=== PATIENT | female | born 1990 | race Caucasian/White ===

== ENCOUNTER 2018-07-29 12:43 | Inpatient (IN) | payer OTHER, SELFPAY ==
[2018-07-29] MEDS ORDERED: NA CIT/CITRIC AC 30 ML ORAL UDC ONE (13:45)
[2018-07-29] MEDS ORDERED: METOCLOPRAMIDE 10 MG/2mL INJ ONE (13:45)
[2018-07-29] MEDS ORDERED: FAMOTIDINE 20 MG/2 ML VIAL IV ONE (13:46)
[2018-07-29] MEDS ORDERED: METHYLERGONOVINE 0.2MG/ML AMP IM PRN ×2 (13:51→15:25)
[2018-07-29] MEDS ORDERED: CARBOPROST TROME 250 MCG/ML IM PRN (13:51)
[2018-07-29] MEDS ORDERED: Ringers Lactate 1,000 ML IV PRN (13:51)
[2018-07-29] MEDS ORDERED: NA CIT/CITRIC AC 30 ML ORAL UDC PO ONE (13:55)
[2018-07-29] MEDS ORDERED: BUPIVACAINE 0.75% (PF) 2 ML SP ONE (13:56)
[2018-07-29] MEDS ORDERED: LIDOCAINE 1.5% W/EPI AMP 5 ML ONE (13:56)
[2018-07-29] MEDS ORDERED: MORPHINE SULFATE/PF 1 MG/ML (10 ML AMP) ONE (13:57)
[2018-07-29] MEDS ORDERED: CEFAZOLIN 2 GM in NA CHLORIDE 0.9% 100 ML IVPB SCH (14:00)
[2018-07-29] MEDS ORDERED: Ringers Lactate 1,000 ML IV SCH (14:00)
[2018-07-29] MEDS ORDERED: METOCLOPRAMIDE 10 MG/2mL INJ IV SCH (14:00)
[2018-07-29] MEDS ORDERED: OXYTOCIN 10 UNIT/ML ML IV ONE (14:02)
[2018-07-29] MEDS ORDERED: ONDANSETRON HCL 40 MG/20 ML VIAL ONE (14:14)
[2018-07-29] MEDS ORDERED: CEFAZOLIN/SWI 2gm 2 GM/20 ML SYR IV SCH (14:15)
[2018-07-29] MEDS ORDERED: Phenylephrine HCl 10 MG/ML 1 ML VIAL ONE (14:15)
[2018-07-29 14:20] LABS: RPR Titer ND
[2018-07-29 14:28] LABS: Absolute Lymphocytes (CBC) 1.3 K/uL (0.7-4.9); Absolute Monocytes 0.4 K/uL (0.1-1.3); Absolute Neutrophil 9.1 K/uL (1.8-8.0); Basophils % 0.3 % (0-1.3); Eosinophils % 0.4 % (0-4.4); Hematocrit 32.8 % (36.0-45.0); Lymphocytes % 11.7 % (15.3-44.8); MCV 83.2 fL (80-100); MPV 10.2 fL (7.6-11.3); RBC Red Blood Cell Count 3.94 M/uL (3.86-4.86)
[2018-07-29] MEDS ORDERED: GLYCOPYRROLATE 0.2 MG/ML SYR ONE ×2 (14:43)
[2018-07-29 14:50] LABS: Glucose Level 128 mg/dL (74-106)
[2018-07-29] MEDS ORDERED: Oxycodone HCl/Acetaminophen 1 TAB TAB PO PRN (15:25)
[2018-07-29] MEDS ORDERED: METHYLERGONOVINE 0.2 MG TAB PO PRN (15:25)
[2018-07-29] MEDS ORDERED: KETOROLAC 30 MG/ML INJ IV PRN (15:25)
[2018-07-29] MEDS ORDERED: ONDANSETRON 4 MG (ODT) TAB PO PRN (15:25)
--- NOTE | 2018-07-29 15:29 | P.BOP ---
Preoperative diagnosis: 40+ week , prior c-sectionX2 Postoperative diagnosis: Same, delivery viable male Primary procedure: Trade Union Official: Colton Dey Estimated blood loss: Less than 800ml Specimen: placenta Anesthesia: Spinal Complications: None Drain(s): Urinary catheter Transferred to: Other (274) Condition: Good
[2018-07-29] MEDS ORDERED: OXYTOCIN/LR 20 UNIT/1,000 ML BAG IV SCH (16:00)
[2018-07-29] MEDS ORDERED: ONDANSETRON 4 MG/2 ML VIAL IV PRN (16:15)
[2018-07-29 16:43] VITALS: BMI 32.9
[2018-07-29 17:32] LABS: Barbiturates NEGATIVE (NEGATIVE); Benzodiazepines NEGATIVE (NEGATIVE); Cocaine NEGATIVE (NEGATIVE); METHAMPHETAM NEGATIVE (NEGATIVE); Methadone NEGATIVE (NEGATIVE); Opiates POSITIVE (NEGATIVE); Phencyclidine NEGATIVE (NEGATIVE); THC Cannibis NEGATIVE (NEGATIVE)
[2018-07-29] MEDS ORDERED: PROMETHAZINE 25 MG/ML VIAL IV ONE (18:10)
--- NOTE | 2018-07-29 18:30 | PREOPHP ---
Date of Admission: 07/29/2018 History Of Present Illness: Ms. Castellanos is a 28-year-old, questionable gestational age and questionable care at 40+ weeks gestation, presents 4 to 5 cm dilated. She has had 2 prior sections, was seen here initially, moved to the [facility], saw physician there, and then moved back to this area without an attempt to seek further care. She presents with contractions and increased vaginal discharge. Past Medical History: Includes 2 prior sections; first one done at 41 weeks gestation, unknown reason, second one done for preeclampsia at 35 weeks gestation. She has no other significant hospitalizations, accidents, illnesses , injuries. Social History: She does smoke a half pack of cigarettes per day. Allergies: HAS NO KNOWN ALLERGIES. Family History: Noncontributory. Review of Systems: She reports no recent cough, cold, fever, or chills. No recent nausea, vomiting. She denies any breast lumps. She denies any bowel or urine difficulties. Infant has been active. HEENT-Alert, no thyromegaly or lymphadenopathy Lungs-Clear Heart-Regular rate and rythym Abdomen-6+ lb infant EFW, non-tender Pelvic-as above Extremities-No edema Impression: 40+ week , prior section x2, unknown closure type , active labor. Plan: We will proceed with repeat section. We will get drop in lab work. CADY/RYANN Voice ID: [id number] MTDClara
[2018-07-30 05:53] LABS: Absolute Lymphocytes (CBC) 0.8 K/uL (0.7-4.9); Absolute Monocytes 0.8 K/uL (0.1-1.3); Absolute Neutrophil 15.1 K/uL (1.8-8.0); Basophils % 0.1 % (0-1.3); Hematocrit 28.5 % (36.0-45.0); Lymphocytes % 4.8 % (15.3-44.8); MPV 10.1 fL (7.6-11.3); Monocytes % 4.7 % (3.3-12.3); RBC Red Blood Cell Count 3.44 M/uL (3.86-4.86)
--- NOTE | 2018-07-30 08:07 | P.PN ---
Date of Service: 07/30/18 No complaints. Discussed planned care. Discussed + urine drug screen. Metal Can Inspector consult requested on pt. with + drug screen and intermittent ob care despite two prior c-sections.
[2018-07-30] MEDS ORDERED: FAMOTIDINE 20 MG/2 ML VIAL IV SCH (09:00)
--- NOTE | 2018-07-30 19:24 | OP ---
Surgeon: Kyle Chacko MD Pit Worker Power Shovel: Dr. Dey. Anesthesiologist: Dr. Toni Sung. Preoperative Diagnosis: A 40-week , active labor, prior x2. Procedures: Spinal blocking anesthesia, repeat section, delivery of a viable male infant. Postoperative Diagnosis: A 40-week , active labor, prior x2. Description Of Procedure: After a satisfactory level of spinal block anesthesia and patient had rece ived 2 g of Ancef for antibiotic prophylaxis, her abdomen was prepped and draped in usual fashion for abdominal surgery. She had a Rainey catheter in place. A Pfannenstiel skin incision was made corres ponding to her prior incision, carried down to the fascia, fascia incised with a combination of sharp and blunt dissection. This was from the underlying rectus muscles. These were divided in the midline. The peritoneum entered, bladder was released. A low-transverse uterine incision was m clive. A 6 pound 10 ounce male infant, 9 and 9 was delivered. Cord was clamped, cut, and the in herman placed in a warmer. Cord blood was obtained and the placenta was manually removed. The uterus was then exteriorized. Cervix was explored with a ring clamp from above to ensure no membranes were interfering with expulsion of lochia and a ring clamp was passed from the operative field. Uterine i ncision was closed in 2 layers of a running nonlocking suture of 0 Vicryl. Good hemostasis was noted . The uterus was returned to the peritoneal cavity which was cleaned of amniotic fluid, debris, and blood clot. The rectus abdominis muscles were approximated in midline with simple sutures of 0 Vicry l. The fascia was closed with running suture of #1 Vicryl from either margin to the middle. The ski n closed with subcutaneous sutures of 3-0 Vicryl, subdermal suture of 3-0 Vicryl, and subcuticular doran ture of 4-0 Monocryl. Estimated total blood loss was less than 800 cc. The patient tolerated all pr ocedures well, was taken to the recovery room in satisfactory condition. CADY/RYANN Voice ID: [id number] Report ID: [id number]
[2018-07-30] MEDS: IBUPROFEN 200 MG TAB PO PRN (20:12)
[2018-07-30] MEDS: Oxycodone HCl/Acetaminophen 1 TAB TAB PO PRN (23:18)
[2018-07-31 03:36] LABS: RPR (Rapid Plasma Reagin) NON-REACT (NON-REACT)
[2018-07-31] MEDS: IBUPROFEN 200 MG TAB PO PRN (04:45)
[2018-07-31] MEDS ORDERED: BISACODYL 10 MG RECTAL SUPP PR ONE (08:09)
[2018-07-31] MEDS: Oxycodone HCl/Acetaminophen 1 TAB TAB PO PRN (12:00)
[2018-07-31 12:19] VITALS: BP 109/51; TEMP 97.5
--- NOTE | 2018-08-01 02:06 | DS ---
Date of Discharge: 07/31/2018 History Of Present Illness/hospital Course: Ms. Castellanos is a 28-year-old female, 5, para 2-0-2-2, who presents to Labor and Delivery in active labor. Because of 2 prior sec tions, she underwent repeat section with spinal block anesthesia, delivered a 6-pound 10-oun ce male infant, Apgars 9 and 9. She was dismissed on the second postoperative day, ambulatory, on a select diet, with routine clfk-O-cualfzj activity restrictions, to be seen back in my office in [address] [place] [address] for incision check. Lab work included an admission hemoglobin and hematocrit of 11.0 and 32.8, dis missal 9.6 and 28.5. She had a glucose level of 128 after IV was started. A positive opiate screen, nonreactive RPR, hepatitis B pending, HIV pending, and she is rubella immune. She is O-positive blo od type. She was dismissed with prescription for Tylenol No. 3, #15, for pain relief. To start taki ng her vitamin, with usual qywp-R-hbruvfn activity restrictions. CADY/RYANN Voice ID: [id number] Report ID: [id number]
[2018-08-01 20:07] LABS: HBsAG Nonreactive (Nonreactive)
== END 2018-07-31 14:00 | disposition home or self-care (01) | DRG 788 ==
LOC: L&D 12:43 → 2ND-WC 13:04
PROVIDERS: ADMIT Specialist; ATTEND Specialist
PROC: 10D00Z1 Extraction of Products of Conception, Low, Open Approach (ICD-10-PCS; principal; 2018-07-30)
DX: O34.211 Maternal care for low transverse scar from previous cesarean delivery (principal); O99.334 Smoking (tobacco) complicating childbirth; Z3A.40 40 weeks gestation of pregnancy; Z37.0 Single live birth
CPT/HCPCS: 36415; 80307; 82947; 85025; 86592; 86762; 86850; 86900; 86901; 87340; 88307; G0433; J2001; J2370; J2405; J2590; J2765